=== PATIENT | female | born 1975 | race Two or more races ===

== ENCOUNTER 2016-11-14 10:08 | Emergency (ER) | payer MEDICAID ==
[2016-11-14 10:28] VITALS: BP 131/78
== END 2016-11-14 13:12 | disposition home or self-care (01) ==
LOC: ED 10:08
DX: H10.13 Acute atopic conjunctivitis, bilateral (principal)

== ENCOUNTER 2017-09-06 20:40 | Emergency (ER) | payer MEDICAID ==
[~2017-09-06] VITALS: Ht 149.9 cm; Wt 63.5 kg
[2017-09-06 21:26] VITALS: Ht 149.9 cm; Wt 63.5 kg
[2017-09-06 22:53] VITALS: BP 116/82
== END 2017-09-06 23:10 | disposition home or self-care (01) ==
LOC: ED 20:40
DX: S29.012A Strain of muscle and tendon of back wall of thorax, initial encounter (principal); M54.42 Lumbago with sciatica, left side; M54.41 Lumbago with sciatica, right side; X58.XXXA Exposure to other specified factors, initial encounter; Y93.89 Activity, other specified; Y92.89 Other specified places as the place of occurrence of the external cause; Y99.8 Other external cause status
CPT/HCPCS: J1170; J1885; Q0162

== ENCOUNTER 2018-05-26 19:07 | Inpatient (IN) | payer MEDICAID ==
[~2018-05-26] VITALS: Ht 147.3 cm; Wt 68.0 kg
[2018-05-26 19:09] VITALS: Ht 147.3 cm; Wt 68.0 kg
[2018-05-26 19:50] LABS: BASOPHIL % 0.3 % (0-2); PLATELET COUNT 353 x10^3mcL (130-400)
[2018-05-26] MEDS ORDERED: ADVIL200 MG PO (20:06)
[2018-05-26 20:19] LABS: CALCIUM 9.2 mg/dL (8.5-10.1); CARBON DIOXIDE 24.2 mmol/L (21-32); CHLORIDE SERUM 102 mmol/L (98-107); CREATININE SERUM 0.9 mg/dL (0.6-1.0); GFR1 > 60 mL/min; GLUCOSE SERUM 117 mg/dL (74-106); POTASSIUM SERUM 3.6 mmol/L (3.5-5.1); SODIUM SERUM 136 mmol/L (136-145)
[2018-05-26 20:23] LABS: ALBUMIN 3.9 g/dL (3.4-5.0); ALKALINE PHOSPHATASE 85 U/L (46-116); ALT/SGPT 26 U/L (14-59); AST/SGOT 20 U/L (15-37); BILIRUBIN TOTAL 0.4 mg/dL (0.20-1.00); MAGNESIUM 2.1 mg/dL (1.8-2.4)
[2018-05-26 20:25] LABS: TOTAL PROTEIN, SERUM 8.3 g/dL (6.4-8.2)
[2018-05-26 20:57] LABS: AMPHETAMINE QUAL UR NONE DETECTED (See below)
[2018-05-26 22:04] LABS: PHOSPHOROUS 4.1 mg/dL (2.5-4.9)
[2018-05-26 22:06] LABS: CHOLESTEROL/HDL RATIO 3.8
[2018-05-26 22:13] LABS: T3 TOTAL 1.22 ng/mL
[2018-05-26 22:28] LABS: FREE T4 0.92 ng/dL (0.76-1.46); FREE THYROXINE INDEX 2.6 ug/dL (1.4-4.5); T4(THYROXINE) 7.8 ug/dL (4.7-13.3)
[2018-05-26 22:38] VITALS: BP 110/62
[2018-05-26 23:38] LABS: microscopic required? NO
[2018-05-26 23:42] VITALS: BP 117/54
[2018-05-26 23:54] LABS: urine erythrocyte NEGATIVE (NEGATIVE)
[2018-05-27 03:39] VITALS: BP 86/58
[2018-05-27 04:41] LABS: BASOPHIL % 0.3 % (0-2); PLATELET COUNT 319 x10^3mcL (130-400)
[2018-05-27 04:51] LABS: RED CELL DISTRIBUTION WIDTH 17.2 % (11.5-14.5)
[2018-05-27 05:04] LABS: CARBON DIOXIDE 22.5 mmol/L (21-32); CHLORIDE SERUM 108 mmol/L (98-107); CREATININE SERUM 0.7 mg/dL (0.6-1.0); GFR1 > 60 mL/min; GLUCOSE SERUM 96 mg/dL (74-106); POTASSIUM SERUM 3.7 mmol/L (3.5-5.1); SODIUM SERUM 136 mmol/L (136-145)
[2018-05-27 05:05] LABS: CALCIUM 8.3 mg/dL (8.5-10.1); PHOSPHOROUS 4.2 mg/dL (2.5-4.9)
[2018-05-27 07:45] VITALS: BP 103/72
[2018-05-27 11:00] VITALS: BP 125/63
[2018-05-27 15:11] VITALS: BP 116/68
[2018-05-28 05:28] LABS: BASOPHIL % 0.5 % (0-2); PLATELET COUNT 281 x10^3mcL (130-400)
[2018-05-28 05:30] LABS: RED CELL DISTRIBUTION WIDTH 17.5 % (11.5-14.5)
[2018-05-28 05:34] LABS: CARBON DIOXIDE 21.1 mmol/L (21-32); CHLORIDE SERUM 108 mmol/L (98-107); CREATININE SERUM 0.7 mg/dL (0.6-1.0); GFR1 > 60 mL/min; GLUCOSE SERUM 101 mg/dL (74-106); MAGNESIUM 1.9 mg/dL (1.8-2.4); PHOSPHOROUS 3.6 mg/dL (2.5-4.9); POTASSIUM SERUM 4.2 mmol/L (3.5-5.1); SODIUM SERUM 137 mmol/L (136-145)
[2018-05-28 06:04] VITALS: BP 105/56
[2018-05-28 07:35] VITALS: BP 106/47
[2018-05-28 11:03] VITALS: BP 106/47
== END 2018-05-28 13:54 | disposition home or self-care (01) | DRG 201 ==
LOC: ED 19:07 → DU 21:02 → IC 21:02 → ED 21:02 → IC 22:05
PROVIDERS: Emergency Medicine; Internal Medicine
DX: I48.91 Unspecified atrial fibrillation (principal); R65.10 Systemic inflammatory response syndrome (SIRS) of non-infectious origin without acute organ dysfunction; I47.1 Supraventricular tachycardia; F12.10 Cannabis abuse, uncomplicated; E78.49 Other hyperlipidemia; E78.00 Pure hypercholesterolemia, unspecified; N63.0 Unspecified lump in unspecified breast; Z68.30 Body mass index [BMI] 30.0-30.9, adult; F17.210 Nicotine dependence, cigarettes, uncomplicated
CPT/HCPCS: 83880; 84439; J1644; J3490; J7030; Q0092

== ENCOUNTER 2018-06-29 17:34 | Emergency (ER) | payer MEDICAID ==
[~2018-06-29] VITALS: Ht 152.4 cm; Wt 70.3 kg
[~2018-06-29 17:34] MED LIST: ADVIL200 MG PO
[2018-06-29 17:38] VITALS: BP 134/68; Ht 152.4 cm; Wt 70.3 kg
== END 2018-06-29 18:29 | disposition home or self-care (01) ==
LOC: ED 17:34
DX: M20.011 Mallet finger of right finger(s) (principal); I48.91 Unspecified atrial fibrillation; Z98.890 Other specified postprocedural states; W23.0XXA Caught, crushed, jammed, or pinched between moving objects, initial encounter; Y93.66 Activity, soccer; Y92.89 Other specified places as the place of occurrence of the external cause; Y99.8 Other external cause status
CPT/HCPCS: J1885; Q0092